=== PATIENT | female | born 1940 | race Caucasian/White ===

== ENCOUNTER 2020-02-16 06:27 | Inpatient (IN) ==
[2020-02-16] MEDS ORDERED: Furosemide 40 mg/4 ml IV VIAL ONE (06:32)
[2020-02-16] MEDS ORDERED: Furosemide 20 mg/2 ml IV VIAL IV ONE (06:36)
[2020-02-16 06:45] LABS: ABS Eosinophils 0.3 10^3/ul (0-0.6); ABS Lymphocytes 3.3 10^3/ul (2.5-16.5); ABS Monocytes 0.6 10^3/ul (0-0.8); Eosinophil % 2.8 %; Hematocrit 45 % (32-45); Lymphocyte % 29.3 %; Mean Corpuscular HGB Conc 33 g/dL (29-37); Mean Corpuscular Hemoglobin 33 pg (25-32); Mean Corpuscular Volume 98 fL (76-96); Mean Platelet Volume 8.8 fL (7.4-10.4); Nucleated Red Blood Cells % 0.2; Platelet Count 219 10^3/uL (150-450); Red Blood Count 4.61 10^6 /uL (3.32-4.80); Red Cell Distribution Width 15 % (10-15); White Blood Count 11.3 10^3/uL (5.0-19.5)
[2020-02-16] MEDS ORDERED: Albuterol/Ipratropium NEB.SOL (2.5/0.5 MG) 3 ML NEB.SOLN ONE (06:49)
[2020-02-16 06:51] LABS: INR 1.03 (0.82-1.09)
[2020-02-16] MEDS ORDERED: Albuterol/Ipratropium NEB.SOL (2.5/0.5 MG) 3 ML NEB.SOLN INH ONE (06:59)
[2020-02-16 07:11] LABS: ALT 18 U/L (7-52); AST 23 U/L (13-39); Albumin 4.1 g/dL (3.2-5.2); Albumin/Globulin Ratio 1.1 (1-3); Alkaline Phosphatase 103 U/L (34-104); Anion Gap 13 mmol/L (2-11); Blood Urea Nitrogen 15 mg/dL (6-24); C Reactive Protein 2.19 mg/L (<8.01); CO2 Carbon Dioxide 23 mmol/L (22-32); Calcium 9.3 mg/dL (8.6-10.3); Chloride 101 mmol/L (101-111); EGFR African American 49.8 (>60); EGFR Non-African American 41.1 (>60); Globulin 3.6 g/dL (2-4); Glucose 373 mg/dL (70-100); Potassium 3.6 mmol/L (3.5-5.0); Sodium 137 mmol/L (135-145); Total Protein 7.7 g/dL (6.4-8.9)
[2020-02-16 07:27] LABS: Troponin I 0.16 ng/mL (<0.03)
[2020-02-16 08:01] LABS: Activated Partial Thrombo Time 30.1 seconds (26.0-38.0)
[2020-02-16] MEDS ORDERED: cefTRIAXone 1 gm/50 mL NS BAG 1 GM/50 ML BAG IV ONE (08:22)
[2020-02-16] MEDS ORDERED: Azithromycin 500 mg/250 ml NS 500 MG/250 ML BAG IVPB ONE (08:22)
[2020-02-16 09:03] LABS: Urine Appearance Cloudy; Urine Bilirubin Negative (Negative); Urine Blood 2+ (Negative); Urine Color Straw; Urine Glucose 1+(50 mg/dL) (Negative); Urine Ketones Negative (Negative); Urine Nitrite Negative (Negative); Urine Protein Negative (Negative); Urine Specific Gravity 1.006 (1.010-1.030); Urine Urobilinogen Negative (Negative)
[2020-02-16 09:07] LABS: Urine Bacteria Absent (Absent); Urine Red Blood Cell 2+(6-10/hpf) (Absent); Urine White Blood Cell Trace(0-5/hpf) (Absent)
[2020-02-16] MEDS ORDERED: Iodixanol (CONTRAST) 320 MG/ML 100 ML SDV IV ONE (09:17)
[2020-02-16 10:01] LABS: Troponin I 1.32 ng/mL (<0.03)
[2020-02-16] MEDS ORDERED: Perflutren Lipid Microsphere 3 ML VIAL ONE (10:01)
[2020-02-16] MEDS ORDERED: Enoxaparin 100 MG/ML SYR(*) SUBCUT ONE (12:13)
[2020-02-16] MEDS ORDERED: Potassium Chlor 10 meq TAB PO ONE ×2 (12:14→18:00)
[2020-02-16 13:10] LABS: Troponin I 4.97 ng/mL (<0.03)
[2020-02-16 13:31] LABS: Anion Gap 11 mmol/L (2-11); BUN/Creatinine Ratio 14.7 (8-20); Blood Urea Nitrogen 16 mg/dL (6-24); CO2 Carbon Dioxide 26 mmol/L (22-32); Calcium 9.3 mg/dL (8.6-10.3); Chloride 103 mmol/L (101-111); EGFR African American 58.3 (>60); EGFR Non-African American 48.2 (>60); Glucose 126 mg/dL (70-100); Potassium 3.9 mmol/L (3.5-5.0); Sodium 140 mmol/L (135-145)
[2020-02-16 16:09] LABS: Troponin I 6.45 ng/mL (<0.03)
[2020-02-16 20:00] LABS: Troponin I 6.79 ng/mL (<0.03)
[2020-02-16 23:03] LABS: Troponin I 5.78 ng/mL (<0.03)
[2020-02-17 05:38] LABS: BUN/Creatinine Ratio 17.8 (8-20); Calcium 9.5 mg/dL (8.6-10.3); EGFR African American 72.7 (>60); EGFR Non-African American 60.1 (>60); Magnesium 2.1 mg/dL (1.9-2.7); Potassium 4.6 mmol/L (3.5-5.0)
[2020-02-17] MEDS: Aspirin EC 81 mg TAB.EC (enteric coated) PO SCH (07:49)
[2020-02-17] MEDS ORDERED: Midazolam 5 mg/5 ml VIAL 1 mg/ml 5 ml VIAL (5 mg) ONE (11:08)
[2020-02-17] MEDS ORDERED: Heparin 1,000 UNIT/ML CATH LAB 1,000 10 ml (10,000 UNITS) IV ONE (11:08)
[2020-02-17] MEDS ORDERED: fentaNYL 100 mcg/2 ml 50 MCG/ML VIAL ONE (11:08)
[2020-02-17] MEDS ORDERED: VERAPAMIL 2.5 MG/ML 2 ML VIAL ** 5 mg/2 ml ONE (11:08)
[2020-02-17] MEDS ORDERED: nitroGLYCERIN DRIP 25,000 MCG/250 ML BTL ONE (11:09)
[2020-02-17] MEDS ORDERED: Iohexol 350 (CONTRAST) 200 ML MDV IV ONE (11:09)
[2020-02-17] MEDS ORDERED: Heparin 2 UNITS/ML 1000 mls 2,000 ML IV ONE (11:09)
[2020-02-17] MEDS ORDERED: Lidocaine 1% VIAL 10 MG/ML VIAL ONE (11:09)
[2020-02-17] MEDS ORDERED: oxyCODONE/Acetamin 5/325 mg TAB PO PRN (12:28)
[2020-02-17] MEDS ORDERED: NS 0.9% 1000 ml BAG 1,000 ML IV SCH (12:30)
[2020-02-18] MEDS: Aspirin EC 81 mg TAB.EC (enteric coated) PO SCH (08:47)
[2020-02-18 09:35] LABS: ABS Basophils 0.1 10^3/ul (0-0.2); ABS Eosinophils 0.1 10^3/ul (0-0.6); ABS Lymphocytes 1.9 10^3/ul (1.0-4.8); ABS Monocytes 0.6 10^3/ul (0-0.8); Eosinophil % 1.3 %; Hematocrit 38 % (35-47); Hemoglobin 12.6 g/dL (12.0-16.0); Lymphocyte % 18.7 %; Mean Corpuscular HGB Conc 34 g/dL (31-36); Mean Corpuscular Hemoglobin 32 pg (27-31); Mean Corpuscular Volume 96 fL (80-97); Mean Platelet Volume 8.4 fL (7.4-10.4); Platelet Count 180 10^3/uL (150-450); Red Blood Count 3.94 10^6 /uL (3.70-4.87); Red Cell Distribution Width 15 % (10-15); White Blood Count 10.1 10^3/uL (3.5-10.8)
[2020-02-18 20:02] VITALS: BP 123/60
== END 2020-02-18 20:06 | disposition short-term general hospital (02) | DRG 280 ==
LOC: EDBD → EDUNIT# → ED 06:27 → ICU 08:48 → MEDTELE 02-17 16:30
PROVIDERS: ADMIT Internal Medicine; ATTEND Internal Medicine